=== PATIENT | male | born 1995 | race African-American/Black ===

== ENCOUNTER 2019-05-13 12:28 | Emergency (ER) | payer OTHER ==
[~2019-05-13] VITALS: Ht 177.8 cm; Wt 72.6 kg
[~2019-05-13 12:28] MED LIST: IBUPROFEN 800800 MG PO; NOHOMEMEDICATIONS
[2019-05-13] MEDS ORDERED: SUDOGEST30 MG PO (13:08)
[2019-05-13] MEDS ORDERED: FLONASE 0.05%50 MCG NASAL (13:08)
[2019-05-13] MEDS ORDERED: ZYRTEC10 M2 PO (13:08)
[2019-05-13 13:44] VITALS: BP 133/71
== END 2019-05-13 13:44 | disposition home or self-care (01) ==
LOC: ER 12:28
DX: J30.9 Allergic rhinitis, unspecified (principal); L98.8 Other specified disorders of the skin and subcutaneous tissue